=== PATIENT | male | born 1965 | race Caucasian/White ===

== ENCOUNTER → 2025-03-18 | Outpatient (CLI) | payer BC ==
[~2025-03-18] MED LIST: ASPI-726 PO; FLUO-365; FURO20TA2; HYDR-3490; LOSA100T46; METO1TAB32; ROSU10TA90; TIRZ10PE; TIRZ7.5P
== END ==
LOC: M ONCR 16:08
PROVIDERS: ATTEND General Practice
DX: C61 Malignant neoplasm of prostate (principal)

== ENCOUNTER → 2025-04-17 | Outpatient (CLI) | payer BC ==
[~2025-04-17] VITALS: Ht 185.4 cm; Wt 148.8 kg
[~2025-04-17] MED LIST changes: +CIPR750T2 PO; +LORA1TAB23 PO
[2025-04-17] MEDS: LIDOCAINE VISCOUS 2% SOLN 15 ML UDC XX ONE (13:00)
[2025-04-17 13:33] VITALS: BP 143/86; TEMP 98.2; O2SAT 98
[2025-04-17] MEDS: LIDOCAINE 2% MDV 20 ML VIAL XX ONE (13:55)
== END ==
LOC: M ONCR 12:19
PROVIDERS: ATTEND General Practice
DX: C61 Malignant neoplasm of prostate (principal)
CPT/HCPCS: 55874; 55876; A4648; C1889